=== PATIENT | male | born 1955 | race Caucasian/White ===

== ENCOUNTER 2019-09-14 10:13 | Outpatient (CLI) | payer BC, OTHER | END 2019-09-14 23:59 | disposition home or self-care (01) | LOC: LAB.S 10:13 | PROVIDERS: ATTEND Physician Assistant | DX: B97.89 Other viral agents as the cause of diseases classified elsewhere (principal); Z20.828 Contact with and (suspected) exposure to other viral communicable diseases | CPT/HCPCS: 81599 ==